=== PATIENT | male | born 1945 | race Caucasian/White ===

== ENCOUNTER → 2018-06-11 | Outpatient (CLI) | payer MEDICARE ==
[~2018-06-11] MED LIST: ASPI-515 PO; BACL-19 PO; CLOP75TA PO; TRAM50TA2 PO; TRIA1CAP3 PO; VANC1VIA3 PO
== END | disposition home or self-care (01) ==
LOC: RAD 07:35
PROVIDERS: ATTEND Surgery
DX: K57.30 Diverticulosis of large intestine without perforation or abscess without bleeding (principal); Z93.3 Colostomy status
CPT/HCPCS: 74270

== ENCOUNTER → 2018-07-05 | Outpatient (CLI) | payer MEDICARE | END | disposition home or self-care (01) | LOC: CARD 08:24 | PROVIDERS: ATTEND Internal Medicine | DX: R55 Syncope and collapse (principal) | CPT/HCPCS: 95819 ==

== ENCOUNTER → 2018-07-14 | Outpatient (CLI) | payer MEDICARE ==
[~2018-07-14] MED LIST changes: +CINN500C2 PO; +CYAN1TAB29 PO; +MULT-707 PO; +OMEG1CAP23 PO; +UBID100C24 PO; +VITAMIN B6 PO; +[UNRECOGNIZED DRUG - OTHER] PO
[2018-07-14 13:32] LABS: BASOPHILS # (AUTO) 0.03 x10^3/uL (0-0.1); BASOPHILS % (AUTO) 0 % (0-1); EOSINOPHILS # (AUTO) 0.25 x10^3/uL (0-0.4); EOSINOPHILS % (AUTO) 2 % (1-7); LYMPHOCYTES # (AUTO) 2.28 x10^3/uL (1-3.4); LYMPHOCYTES % (AUTO) 21 % (22-44); MD NO; MEAN CORPUSCULAR HEMOGLOBIN 32.3 pg (27.5-34.5); MEAN CORPUSCULAR HGB CONC 33.6 g/dL (33.2-36.2); MEAN CORPUSCULAR VOLUME 96.3 fL (81-97); MEAN PLATELET VOLUME 7.8 fL (7.4-10.4); MONOCYTES # (AUTO) 1.02 x10^3/uL (0.2-0.8); MONOCYTES % (AUTO) 9 % (2-9); NEUTROPHILS # (AUTO) 7.22 x10^3/uL (1.8-6.8); NEUTROPHILS % (AUTO) 67 % (42-75); PLATELET COUNT 296 x10^3/uL (130-400); RED BLOOD COUNT 5.23 x10^6/uL (4.38-5.82); RED CELL DISTRIBUTION WIDTH 13.7 % (9.4-14.8)
[2018-07-14 13:44] LABS: ALBUMIN 3.9 g/dL (3.4-5.0); ANION GAP 7 mmol/L (5-15); CALCIUM 9.5 mg/dL (8.5-10.1); CHLORIDE 109 mmol/L (98-107)
[2018-07-14 13:49] LABS: ALANINE AMINOTRANSFERASE 36 U/L (12-78); ALKALINE PHOSPHATASE 82 U/L (45-117); BILIRUBIN,TOTAL 0.6 mg/dL (0.2-1.0); CREATININE 1.07 mg/dL (0.7-1.3); TOTAL PROTEIN 7.3 g/dL (6.4-8.2)
== END | disposition home or self-care (01) ==
LOC: STAR 12:32
PROVIDERS: ATTEND Surgery
DX: Z01.818 Encounter for other preprocedural examination (principal)
CPT/HCPCS: 36415; 80053; 85025; 93005

== ENCOUNTER 2018-07-21 07:48 | Inpatient (IN) | payer MEDICARE ==
[~2018-07-21] VITALS: Ht 167.6 cm; Wt 76.1 kg
[2018-07-21 08:29] VITALS: BP 128/83
[2018-07-21] MEDS ORDERED: LACTATED RINGERS 1,000 ML IV SCH (08:34)
[2018-07-21] MEDS ORDERED: FENTANYL PF 250 MCG/5ML ONE (10:01)
[2018-07-21] MEDS ORDERED: MIDAZOLAM 1 MG/ML, 2ML ONE (10:01)
[2018-07-21] MEDS ORDERED: CEFOTETAN 2 GM ONE (10:30)
[2018-07-21] MEDS ORDERED: PROPOFOL 10 MG/ML, 20ML ONE (10:30)
[2018-07-21] MEDS ORDERED: EPHEDRINE 50 MG/ML, 1ML ONE (10:30)
[2018-07-21] MEDS ORDERED: ONDANSETRON 2MG/ML, 2ML ONE (10:30)
[2018-07-21] MEDS ORDERED: LABETALOL 5MG/ML, 20ML ONE (10:30)
[2018-07-21] MEDS ORDERED: ROCURONIUM 10 MG/ML,10ML ONE (10:30)
[2018-07-21] MEDS ORDERED: DEXAMETHASONE 4 MG/ML, 1ML ONE (10:30)
[2018-07-21] MEDS ORDERED: GLYCOPYRROLATE 0.2MG/1ML, 5ML ONE (10:30)
[2018-07-21] MEDS ORDERED: NEOSTIGMINE 1 MG/ML, 10ML ONE (10:30)
[2018-07-21] MEDS ORDERED: INDOCYANINE GREEN 25 MG VIAL ONE (11:42)
[2018-07-21] MEDS ORDERED: OXYcodone 5 MG/5 ML ORAL.SOL UDC ONE (12:49)
[2018-07-21] MEDS ORDERED: FENTANYL PF 100 MCG/2ML ONE (12:49)
[2018-07-21] MEDS: FENTANYL PF 100 MCG/2ML IV PRN ×3 (12:53→13:30)
[2018-07-21] MEDS ORDERED: hydrALAzine 20 MG/ML, 1ML IV PRN (13:00)
[2018-07-21] MEDS ORDERED: DIAZEPAM 5 MG/ML, 2ML IVPush PRN (13:00)
[2018-07-21] MEDS ORDERED: ALBUTEROL SULFATE 2.5 MG/3 ML NPPB PRN (13:00)
[2018-07-21] MEDS ORDERED: LABETALOL 5MG/ML, 20ML IV PRN (13:00)
[2018-07-21] MEDS ORDERED: MEPERIDINE/PF 25MG/0.5ML IVPush PRN (13:00)
[2018-07-21] MEDS ORDERED: OXYcodone 5 MG/5 ML ORAL.SOL UDC PO PRN (13:00)
[2018-07-21] MEDS ORDERED: ACETAMINOPHEN 325 MG TABLET PO PRN (13:00)
[2018-07-21] MEDS ORDERED: KETOROLAC 30 MG/1 ML IV PRN (13:00)
[2018-07-21] MEDS ORDERED: HYDROmorphone 2 MG/ML, 1ML IVPush PRN (13:00)
[2018-07-21] MEDS ORDERED: PROMETHAZINE 25 MG/ML, 1ML IV PRN (13:00)
[2018-07-21] MEDS ORDERED: ACETAMINOPHEN 650 MG/20.3 ML UDC ONE (13:00)
[2018-07-21] MEDS ORDERED: LORazepam 2 MG/ML, 1ML IVPush PRN (15:00)
[2018-07-21] MEDS ORDERED: LORazepam 1MG TABLET PO PRN (15:00)
[2018-07-21] MEDS ORDERED: DEXAMETHASONE 4 MG/ML, 1ML IVPush PRN (15:00)
[2018-07-21] MEDS ORDERED: SCOPOLAMINE PATCH, 1.5MG PATCH.TD72 TD PRN (15:00)
[2018-07-21] MEDS ORDERED: DIPHENHYDRAMINE 50 MG/ML, 1ML IVPush PRN (15:00)
[2018-07-21] MEDS ORDERED: ACETAMINOPHEN 100 ML IV PRN (15:00)
[2018-07-21] MEDS ORDERED: HALOPERIDOL 5 MG/ML IVPush PRN (15:00)
[2018-07-21] MEDS ORDERED: ACETAMINOPHEN 100 ML IV SCH (15:00)
[2018-07-21] MEDS: D5%-0.45NACL+KCL 20MEQ 1,000 ML IV SCH (16:16)
[2018-07-21] MEDS: ACETAMINOPHEN 500 MG TABLET PO SCH ×2 (16:17→20:39)
[2018-07-21] MEDS: IBUPROFEN 800 MG TABLET PO SCH ×2 (17:01→20:39)
[2018-07-21] MEDS: INSULIN REGULAR, HUMAN 100 UNITS/ML, 3ML MEDIUM DOSE SS SQ-INSULIN SCH ×2 (17:49→20:41)
[2018-07-21 20:13] VITALS: BP 122/74
[2018-07-21] MEDS ORDERED: HYDROmorphone 2 MG/ML, 1ML ONE (20:29)
[2018-07-21] MEDS: HYDROmorphone 1 MG/ML, 1ML IVPush PRN (20:41)
[2018-07-21] MEDS: HEPARIN 5,000 UNITS/ML, 1ML SQ SCH (21:23)
[2018-07-21] MEDS: ONDANSETRON 2MG/ML, 2ML IV PRN (21:23)
[2018-07-22] VITALS: BP 138/73
[2018-07-22] MEDS: ACETAMINOPHEN 500 MG TABLET PO SCH ×4 (03:16→22:30)
[2018-07-22 04:30] VITALS: BP 101/67
[2018-07-22] MEDS: D5%-0.45NACL+KCL 20MEQ 1,000 ML IV SCH ×2 (04:41→15:59)
[2018-07-22] MEDS: HEPARIN 5,000 UNITS/ML, 1ML SQ SCH ×3 (05:15→22:31)
[2018-07-22 05:30] VITALS: BP 117/69
[2018-07-22 05:33] LABS: BASOPHILS % (AUTO) 0 % (0-1); EOSINOPHILS # (AUTO) 0.03 x10^3/uL (0-0.4); EOSINOPHILS % (AUTO) 0 % (1-7); LYMPHOCYTES # (AUTO) 0.82 x10^3/uL (1-3.4); LYMPHOCYTES % (AUTO) 5 % (22-44); MD NO; MEAN CORPUSCULAR HEMOGLOBIN 33.1 pg (27.5-34.5); MEAN CORPUSCULAR HGB CONC 34.3 g/dL (33.2-36.2); MEAN CORPUSCULAR VOLUME 96.3 fL (81-97); MEAN PLATELET VOLUME 8.6 fL (7.4-10.4); MONOCYTES # (AUTO) 1.34 x10^3/uL (0.2-0.8); MONOCYTES % (AUTO) 8 % (2-9); NEUTROPHILS # (AUTO) 15.17 x10^3/uL (1.8-6.8); NEUTROPHILS % (AUTO) 87 % (42-75); PLATELET COUNT 273 x10^3/uL (130-400); RED BLOOD COUNT 4.73 x10^6/uL (4.38-5.82); RED CELL DISTRIBUTION WIDTH 13.8 % (9.4-14.8)
[2018-07-22] MEDS ORDERED: MORPHINE SULFATE 4 MG/ML, 1ML ONE (05:42)
[2018-07-22] MEDS ORDERED: MORPHINE SULFATE 4 MG/ML, 1ML IVPush ONE (06:00)
[2018-07-22] MEDS ORDERED: ASPIRIN 325 MG TABLET PO ONE (06:00)
[2018-07-22 06:14] LABS: ANION GAP 6 mmol/L (5-15); CALCIUM 9.4 mg/dL (8.5-10.1); CHLORIDE 102 mmol/L (98-107)
[2018-07-22 06:18] LABS: CREATININE 1.21 mg/dL (0.7-1.3); TROPONIN I < 0.015 ng/mL (0.000-0.045)
[2018-07-22 08:00] VITALS: BP 124/71
[2018-07-22] MEDS: INSULIN REGULAR, HUMAN 100 UNITS/ML, 3ML MEDIUM DOSE SS SQ-INSULIN SCH ×4 (08:09→22:35)
[2018-07-22] MEDS: IBUPROFEN 800 MG TABLET PO SCH ×3 (08:09→22:30)
[2018-07-22] MEDS: METOCLOPRAMIDE 5 MG/ML, 2ML IVPush SCH ×3 (08:10→20:17)
[2018-07-22 12:16] LABS: TROPONIN I < 0.015 ng/mL (0.000-0.045)
[2018-07-22 14:21] VITALS: BP 114/68
[2018-07-22 19:34] VITALS: BP 119/71
[2018-07-22] MEDS: CALCIUM CARBONATE 500 MG TAB.CHEW PO PRN (22:39)
[2018-07-23 00:58] VITALS: BP 125/78
[2018-07-23] MEDS: METOCLOPRAMIDE 5 MG/ML, 2ML IVPush SCH (02:12)
[2018-07-23] MEDS: ACETAMINOPHEN 500 MG TABLET PO SCH ×4 (03:00→22:26)
[2018-07-23 05:29] LABS: ANION GAP 8 mmol/L (5-15); CALCIUM 8.9 mg/dL (8.5-10.1); CHLORIDE 106 mmol/L (98-107); CREATININE 1.09 mg/dL (0.7-1.3)
[2018-07-23 05:33] LABS: MEAN CORPUSCULAR HEMOGLOBIN 32.7 pg (27.5-34.5); MEAN CORPUSCULAR HGB CONC 34.1 g/dL (33.2-36.2); MEAN CORPUSCULAR VOLUME 95.9 fL (81-97); MEAN PLATELET VOLUME 8.4 fL (7.4-10.4); PLATELET COUNT 264 x10^3/uL (130-400); RED BLOOD COUNT 4.77 x10^6/uL (4.38-5.82); RED CELL DISTRIBUTION WIDTH 13.7 % (9.4-14.8)
[2018-07-23 06:42] LABS: BASOPHILS # (AUTO) 0.01 x10^3/uL (0-0.1); BASOPHILS % (AUTO) 0 % (0-1); EOSINOPHILS # (AUTO) 0.05 x10^3/uL (0-0.4); EOSINOPHILS % (AUTO) 0 % (1-7); LYMPHOCYTES # (AUTO) 0.89 x10^3/uL (1-3.4); LYMPHOCYTES % (AUTO) 5 % (22-44); MD SCAN; MONOCYTES # (AUTO) 0.99 x10^3/uL (0.2-0.8); MONOCYTES % (AUTO) 6 % (2-9); NEUTROPHILS # (AUTO) 15.46 x10^3/uL (1.8-6.8); NEUTROPHILS % (AUTO) 89 % (42-75)
[2018-07-23] MEDS ORDERED: SODIUM CHLORIDE 0.9% 1,000ML IVBOLUS ONE (07:00)
[2018-07-23 07:09] VITALS: BP 161/82
[2018-07-23] MEDS: INSULIN REGULAR, HUMAN 100 UNITS/ML, 3ML MEDIUM DOSE SS SQ-INSULIN SCH ×4 (08:04→21:00)
[2018-07-23] MEDS: IBUPROFEN 800 MG TABLET PO SCH ×3 (08:55→22:26)
[2018-07-23] MEDS: D5%-0.45NACL+KCL 20MEQ 1,000 ML IV SCH ×2 (09:54→13:30)
[2018-07-23] MEDS: D5%-0.45% NACL 1,000 ML IV SCH ×2 (13:27→22:26)
[2018-07-23 14:04] VITALS: BP 153/87
[2018-07-23 21:59] VITALS: BP 178/78
[2018-07-23] MEDS: TRIAMTERENE-HCTZ 37.5/25 MG TABLET PO SCH (22:26)
[2018-07-23] MEDS: SERTRALINE 50MG TABLET PO SCH (22:27)
[2018-07-24 02:00] VITALS: BP 178/95
[2018-07-24] MEDS: ACETAMINOPHEN 500 MG TABLET PO SCH ×4 (03:00→20:31)
[2018-07-24 05:47] LABS: ANION GAP 6 mmol/L (5-15); CALCIUM 8.3 mg/dL (8.5-10.1); CHLORIDE 109 mmol/L (98-107); CREATININE 0.78 mg/dL (0.7-1.3)
[2018-07-24 06:00] LABS: BASOPHILS # (AUTO) 0.03 x10^3/uL (0-0.1); BASOPHILS % (AUTO) 0 % (0-1); EOSINOPHILS % (AUTO) 2 % (1-7); LYMPHOCYTES # (AUTO) 1.36 x10^3/uL (1-3.4); LYMPHOCYTES % (AUTO) 11 % (22-44); MD NO; MEAN CORPUSCULAR HEMOGLOBIN 33.1 pg (27.5-34.5); MEAN CORPUSCULAR HGB CONC 34.7 g/dL (33.2-36.2); MEAN CORPUSCULAR VOLUME 95.5 fL (81-97); MEAN PLATELET VOLUME 7.9 fL (7.4-10.4); MONOCYTES # (AUTO) 1.08 x10^3/uL (0.2-0.8); MONOCYTES % (AUTO) 9 % (2-9); NEUTROPHILS # (AUTO) 9.85 x10^3/uL (1.8-6.8); NEUTROPHILS % (AUTO) 78 % (42-75); PLATELET COUNT 247 x10^3/uL (130-400); RED BLOOD COUNT 4.21 x10^6/uL (4.38-5.82); RED CELL DISTRIBUTION WIDTH 14.3 % (9.4-14.8)
[2018-07-24] MEDS ORDERED: hydrALAzine 20 MG/ML, 1ML IV PRN (07:30)
[2018-07-24] MEDS: INSULIN REGULAR, HUMAN 100 UNITS/ML, 3ML MEDIUM DOSE SS SQ-INSULIN SCH ×4 (07:50→20:43)
[2018-07-24 09:07] VITALS: BP 179/92
[2018-07-24] MEDS: IBUPROFEN 800 MG TABLET PO SCH ×3 (09:14→20:32)
[2018-07-24] MEDS ORDERED: NITROGLYCERIN 0.4 MG BOTTLE (25 TABS) SL ONE (09:31)
[2018-07-24 10:00] LABS: TROPONIN I < 0.015 ng/mL (0.000-0.045)
[2018-07-24 10:14] VITALS: BP 159/88
[2018-07-24] MEDS ORDERED: ENALAPRILAT 1.25 MG/ML, 2ML IV PRN (11:00)
[2018-07-24 14:43] VITALS: BP 156/80
[2018-07-24 15:31] LABS: TROPONIN I < 0.015 ng/mL (0.000-0.045)
[2018-07-24 19:56] VITALS: BP 134/80
[2018-07-24] MEDS ORDERED: IBUPROFEN 200 MG TABLET ONE (20:08)
[2018-07-24] MEDS: TRIAMTERENE-HCTZ 37.5/25 MG TABLET PO SCH (20:31)
[2018-07-24] MEDS: SERTRALINE 50MG TABLET PO SCH (20:38)
[2018-07-24 21:17] LABS: TROPONIN I < 0.015 ng/mL (0.000-0.045)
[2018-07-25] VITALS (14 sets, daily range): BP systolic 104–208; BP diastolic 67–105
[2018-07-25 03:19] LABS: BASOPHILS # (AUTO) 0.06 x10^3/uL (0-0.1); BASOPHILS % (AUTO) 1 % (0-1); EOSINOPHILS # (AUTO) 0.53 x10^3/uL (0-0.4); EOSINOPHILS % (AUTO) 4 % (1-7); LYMPHOCYTES # (AUTO) 1.77 x10^3/uL (1-3.4); LYMPHOCYTES % (AUTO) 14 % (22-44); MD NO; MEAN CORPUSCULAR HEMOGLOBIN 32.8 pg (27.5-34.5); MEAN CORPUSCULAR HGB CONC 33.8 g/dL (33.2-36.2); MEAN CORPUSCULAR VOLUME 96.9 fL (81-97); MEAN PLATELET VOLUME 7.6 fL (7.4-10.4); MONOCYTES # (AUTO) 1.03 x10^3/uL (0.2-0.8); MONOCYTES % (AUTO) 8 % (2-9); NEUTROPHILS # (AUTO) 9.09 x10^3/uL (1.8-6.8); NEUTROPHILS % (AUTO) 73 % (42-75); PLATELET COUNT 291 x10^3/uL (130-400); RED BLOOD COUNT 4.37 x10^6/uL (4.38-5.82); RED CELL DISTRIBUTION WIDTH 14.2 % (9.4-14.8)
[2018-07-25 03:31] LABS: ANION GAP 6 mmol/L (5-15); CALCIUM 8.8 mg/dL (8.5-10.1); CHLORIDE 109 mmol/L (98-107); CREATININE 0.82 mg/dL (0.7-1.3)
[2018-07-25 03:35] LABS: TROPONIN I < 0.015 ng/mL (0.000-0.045)
[2018-07-25] MEDS: ACETAMINOPHEN 500 MG TABLET PO SCH ×4 (03:35→21:21)
[2018-07-25] MEDS: INSULIN REGULAR, HUMAN 100 UNITS/ML, 3ML MEDIUM DOSE SS SQ-INSULIN SCH ×4 (07:45→20:00)
[2018-07-25] MEDS: IBUPROFEN 800 MG TABLET PO SCH ×3 (10:45→21:21)
[2018-07-25] MEDS ORDERED: POTASSIUM CHLORIDE 20 MEQ TAB.ER.PRT PO ONE (11:00)
[2018-07-25] MEDS ORDERED: POTASSIUM CHLORIDE 20 MEQ TAB.ER.PRT ONE (15:12)
[2018-07-25] MEDS: SERTRALINE 50MG TABLET PO SCH (21:00)
[2018-07-25] MEDS: TRIAMTERENE-HCTZ 37.5/25 MG TABLET PO SCH (21:21)
[2018-07-25] MEDS: NITROGLYCERIN 0.4 MG BOTTLE (25 TABS) SL PRN ×4 (21:26→23:54)
[2018-07-26] VITALS (11 sets, daily range): BP systolic 115–186; BP diastolic 74–93
[2018-07-26] MEDS ORDERED: HYDROmorphone 2 MG/ML, 1ML ONE (00:04)
[2018-07-26] MEDS: HYDROmorphone 1 MG/ML, 1ML IVPush PRN (00:07)
[2018-07-26] MEDS ORDERED: NITROGLYCERIN 0.4 MG BOTTLE (25 TABS) SL PRN (00:30)
[2018-07-26] MEDS ORDERED: NITROGLYCERIN 0.4 MG/SPRAY SL PRN (00:30)
[2018-07-26] MEDS ORDERED: MAALOX/HYOSCYAMINE/LIDOCAINE 45 ML BTL PO ONE (01:00)
[2018-07-26] MEDS: ACETAMINOPHEN 500 MG TABLET PO SCH ×2 (03:48→09:00)
[2018-07-26] MEDS: INSULIN REGULAR, HUMAN 100 UNITS/ML, 3ML MEDIUM DOSE SS SQ-INSULIN SCH ×4 (07:00→20:38)
[2018-07-26 07:38] LABS: BASOPHILS # (AUTO) 0.03 x10^3/uL (0-0.1); BASOPHILS % (AUTO) 0 % (0-1); EOSINOPHILS # (AUTO) 0.48 x10^3/uL (0-0.4); EOSINOPHILS % (AUTO) 4 % (1-7); LYMPHOCYTES # (AUTO) 1.87 x10^3/uL (1-3.4); LYMPHOCYTES % (AUTO) 16 % (22-44); MD NO; MEAN CORPUSCULAR HEMOGLOBIN 32.3 pg (27.5-34.5); MEAN CORPUSCULAR HGB CONC 33.4 g/dL (33.2-36.2); MEAN CORPUSCULAR VOLUME 96.6 fL (81-97); MEAN PLATELET VOLUME 7.5 fL (7.4-10.4); MONOCYTES # (AUTO) 1.17 x10^3/uL (0.2-0.8); MONOCYTES % (AUTO) 10 % (2-9); NEUTROPHILS # (AUTO) 7.97 x10^3/uL (1.8-6.8); NEUTROPHILS % (AUTO) 69 % (42-75); PLATELET COUNT 315 x10^3/uL (130-400); RED CELL DISTRIBUTION WIDTH 13.9 % (9.4-14.8)
[2018-07-26 07:47] LABS: ANION GAP 4 mmol/L (5-15); CALCIUM 9.3 mg/dL (8.5-10.1); CHLORIDE 106 mmol/L (98-107); CREATININE 0.96 mg/dL (0.7-1.3)
[2018-07-26] MEDS ORDERED: MORPHINE SULFATE 4 MG/ML, 1ML ONE (08:08)
[2018-07-26] MEDS: ONDANSETRON 2MG/ML, 2ML IV PRN (08:12)
[2018-07-26] MEDS ORDERED: MORPHINE SULFATE 4 MG/ML, 1ML IVPush ONE ×2 (08:30→12:30)
[2018-07-26] MEDS: IBUPROFEN 800 MG TABLET PO SCH (09:00)
[2018-07-26] MEDS ORDERED: REGADENOSON 0.4 MG/5 ML SYRINGE ONE (09:25)
[2018-07-26] MEDS ORDERED: IBUPROFEN 200 MG TABLET ONE (12:07)
[2018-07-26] MEDS: CALCIUM CARBONATE 500 MG TAB.CHEW PO PRN ×2 (12:13→14:29)
[2018-07-26 12:51] LABS: TROPONIN I < 0.015 ng/mL (0.000-0.045)
[2018-07-26] MEDS ORDERED: AMLODIPINE 2.5 MG TABLET PO ONE (14:30)
[2018-07-26] MEDS ORDERED: MAALOX/HYOSCYAMINE/LIDOCAINE 45 ML BTL PO PRN ×2 (15:30→18:30)
[2018-07-26] MEDS: TRIAMTERENE-HCTZ 37.5/25 MG TABLET PO SCH (20:33)
[2018-07-26] MEDS: FAMOTIDINE 20 MG TABLET PO SCH (20:33)
[2018-07-27 02:31] VITALS: BP 134/81
[2018-07-27 07:41] VITALS: BP 120/74
[2018-07-27] MEDS: FAMOTIDINE 20 MG TABLET PO SCH (07:59)
[2018-07-27] MEDS: INSULIN REGULAR, HUMAN 100 UNITS/ML, 3ML MEDIUM DOSE SS SQ-INSULIN SCH (07:59)
[2018-07-27] MEDS ORDERED: AMLODIPINE 2.5 MG TABLET PO SCH (09:00)
[2018-07-27] MEDS ORDERED: AMLO2.5T2 PO (09:48)
== END 2018-07-27 11:00 | disposition home health service (06) | DRG 332 ==
LOC: ORIP 07:48 → 4NOR 14:19 → 5SO 07-24 10:11 → DCLOUNGE 07-27 10:30
PROVIDERS: ADMIT Surgery; ATTEND Surgery
PROC: 0DSN4ZZ Reposition Sigmoid Colon, Percutaneous Endoscopic Approach (ICD-10-PCS; 2018-07-21)
PROC: 8E0W4CZ Robotic Assisted Procedure of Trunk Region, Percutaneous Endoscopic Approach (ICD-10-PCS; 2018-07-21)
PROC: 3E0T3BZ Introduction of Anesthetic Agent into Peripheral Nerves and Plexi, Percutaneous Approach (ICD-10-PCS; 2018-07-21)
PROC: 0DBP4ZZ Excision of Rectum, Percutaneous Endoscopic Approach (ICD-10-PCS; principal; 2018-07-21 10:00)
DX: Z43.3 Encounter for attention to colostomy (principal); R65.11 Systemic inflammatory response syndrome (SIRS) of non-infectious origin with acute organ dysfunction; E88.41 MELAS syndrome; E78.5 Hyperlipidemia, unspecified; E87.6 Hypokalemia; F32.9 Major depressive disorder, single episode, unspecified; I11.9 Hypertensive heart disease without heart failure; R07.9 Chest pain, unspecified; M19.90 Unspecified osteoarthritis, unspecified site; R73.9 Hyperglycemia, unspecified; D72.829 Elevated white blood cell count, unspecified; I25.10 Atherosclerotic heart disease of native coronary artery without angina pectoris; K11.7 Disturbances of salivary secretion; Z82.49 Family history of ischemic heart disease and other diseases of the circulatory system; Z85.828 Personal history of other malignant neoplasm of skin; Z87.442 Personal history of urinary calculi; Z87.891 Personal history of nicotine dependence; Z95.1 Presence of aortocoronary bypass graft; Z95.5 Presence of coronary angioplasty implant and graft; Z90.49 Acquired absence of other specified parts of digestive tract; Z79.82 Long term (current) use of aspirin; Z79.899 Other long term (current) drug therapy; Z83.3 Family history of diabetes mellitus
CPT/HCPCS: 36415; 78452; 78582; 80048; 82962; 84484; 85025; 86140; 88304; 88307; 93005; 93017; G0378; J1100; J1170; J1644; J1815; J2250; J2405; J2704; J2710; J2785; J3010; J3490; A9502; A9540; A9558; C9898; J0360; J2765; J3480; J7030; J7120

== ENCOUNTER 2019-03-14 10:48 | Outpatient (CLI) | payer MEDICARE ==
[~2019-03-14 10:48] MED LIST changes: +AMLO2.5T2 PO
[2019-03-14] MEDS ORDERED: B12 PO (11:29)
[2019-03-14] MEDS ORDERED: MULT-758 PO (11:29)
[2019-03-14 12:30] LABS: BASOPHILS # (AUTO) 0.02 x10^3/uL (0-0.1); BASOPHILS % (AUTO) 0 % (0-1); EOSINOPHILS # (AUTO) 0.17 x10^3/uL (0-0.4); EOSINOPHILS % (AUTO) 2 % (1-7); LYMPHOCYTES % (AUTO) 18 % (22-44); MD NO; MEAN CORPUSCULAR HEMOGLOBIN 32.9 pg (27.5-34.5); MEAN CORPUSCULAR HGB CONC 33.7 g/dL (33.2-36.2); MEAN CORPUSCULAR VOLUME 97.5 fL (81-97); MEAN PLATELET VOLUME 8.1 fL (7.4-10.4); MONOCYTES # (AUTO) 0.78 x10^3/uL (0.2-0.8); MONOCYTES % (AUTO) 9 % (2-9); NEUTROPHILS # (AUTO) 6.11 x10^3/uL (1.8-6.8); NEUTROPHILS % (AUTO) 71 % (42-75); PLATELET COUNT 260 x10^3/uL (130-400); RED BLOOD COUNT 5.28 x10^6/uL (4.38-5.82); RED CELL DISTRIBUTION WIDTH 13.8 % (9.4-14.8)
[2019-03-14 12:32] LABS: INTERNATIONAL NORMALIZED RATIO 0.95 (0.93-1.1)
[2019-03-14 12:34] LABS: ANION GAP 7 mmol/L (5-15); CALCIUM 9.9 mg/dL (8.5-10.1); CHLORIDE 105 mmol/L (98-107); CREATININE 1.03 mg/dL (0.7-1.3)
[2019-03-15 08:52] LABS: ALANINE AMINOTRANSFERASE 41 U/L (12-78)
[2019-03-15 08:54] LABS: ALKALINE PHOSPHATASE 109 U/L (45-117); BILIRUBIN,TOTAL 0.5 mg/dL (0.2-1.0); TOTAL PROTEIN 7.3 g/dL (6.4-8.2)
== END 2019-03-14 23:59 | disposition home or self-care (01) ==
LOC: STAR 10:48
PROVIDERS: ATTEND Neurological Surgery
DX: Z01.818 Encounter for other preprocedural examination (principal); M48.062 Spinal stenosis, lumbar region with neurogenic claudication
CPT/HCPCS: 36415; 80048; 80053; 85025; 85610; 85730; 93005

== ENCOUNTER 2019-03-22 05:43 | Inpatient (IN) | payer MEDICARE ==
[~2019-03-22] VITALS: Ht 167.6 cm; Wt 78.8 kg
[~2019-03-22 05:43] MED LIST changes: +B12 PO; +MULT-758 PO
[2019-03-22] MEDS ORDERED: LACTATED RINGERS 1,000 ML IV SCH (06:12)
[2019-03-22] MEDS ORDERED: BACITRACIN OINT 500U/GM, 15 GM ONE (07:03)
[2019-03-22] MEDS ORDERED: BUPIVACAINE/PF 0.5% ONE (07:03)
[2019-03-22] MEDS ORDERED: VANCOMYCIN 1,000 MG ONE (07:03)
[2019-03-22] MEDS ORDERED: methylPREDNISolone *ACETATE* 40 MG/ML ONE (07:03)
[2019-03-22] MEDS ORDERED: THROMBIN 5,000 UNIT VIAL TP ONE ×2 (07:03→08:31)
[2019-03-22] MEDS ORDERED: EPINEPHRINE 1 MG/ML, 1ML ONE (07:03)
[2019-03-22] MEDS ORDERED: BACITRACIN 50,000 UNIT ONE (07:03)
[2019-03-22] MEDS ORDERED: MIDAZOLAM 1 MG/ML, 2ML ONE (07:23)
[2019-03-22] MEDS ORDERED: FENTANYL PF 250 MCG/5ML ONE (07:23)
[2019-03-22] MEDS ORDERED: PROMETHAZINE 25 MG/ML, 1ML IV PRN (07:30)
[2019-03-22] MEDS ORDERED: MEPERIDINE/PF 25MG/ML,1ML IVPush PRN (07:30)
[2019-03-22] MEDS ORDERED: ACETAMINOPHEN 500 MG TABLET PO ONE (07:30)
[2019-03-22] MEDS ORDERED: hydrALAzine 20 MG/ML, 1ML IV PRN (07:30)
[2019-03-22] MEDS ORDERED: LABETALOL 5MG/ML, 20ML IV PRN (07:30)
[2019-03-22] MEDS ORDERED: HYDROmorphone 2 MG/ML, 1ML IVPush PRN ×2 (07:30→10:00)
[2019-03-22] MEDS ORDERED: OXYcodone 5 MG/5 ML ORAL.SOL UDC PO PRN (07:30)
[2019-03-22] MEDS ORDERED: HALOPERIDOL 5 MG/ML IV PRN (07:30)
[2019-03-22] MEDS ORDERED: EPHEDRINE 50 MG/ML, 1ML ONE (07:36)
[2019-03-22] MEDS ORDERED: SUCCINYLCHOLINE 20 MG/ML, 10ML ONE (09:26)
[2019-03-22] MEDS ORDERED: DEXAMETHASONE 4 MG/ML, 1ML ONE (09:26)
[2019-03-22] MEDS ORDERED: ONDANSETRON 2MG/ML, 2ML ONE (09:26)
[2019-03-22] MEDS ORDERED: NEOSTIGMINE 1 MG/ML, 10ML ONE (09:26)
[2019-03-22] MEDS ORDERED: PROPOFOL 10 MG/ML, 20ML ONE (09:26)
[2019-03-22] MEDS ORDERED: CEFAZOLIN 1,000 MG ONE (09:26)
[2019-03-22] MEDS ORDERED: ROCURONIUM 10MG/ML,5ML ONE (09:26)
[2019-03-22] MEDS ORDERED: GLYCOPYRROLATE 0.2MG/1ML, 5ML ONE (09:26)
[2019-03-22] MEDS ORDERED: DIPHENHYDRAMINE 50 MG/ML, 1ML IM PRN (10:00)
[2019-03-22] MEDS ORDERED: BISACODYL 10 MG SUPP PR PRN (10:00)
[2019-03-22] MEDS ORDERED: PROMETHAZINE 25 MG/ML, 1ML IM PRN (10:00)
[2019-03-22] MEDS ORDERED: ONDANSETRON 2MG/ML, 2ML IVPush PRN (10:00)
[2019-03-22] MEDS ORDERED: DIPHENHYDRAMINE 50 MG CAPSULE PO PRN (10:00)
[2019-03-22] MEDS ORDERED: PHARMACY MAY ADJ FOR RENAL FX MC PRN (10:00)
[2019-03-22] MEDS: OXYcodone 5 MG/5 ML ORAL.SOL UDC PO PRN ×2 (10:11→10:17)
[2019-03-22] MEDS ORDERED: OXYcodone 5 MG/5 ML ORAL.SOL UDC ONE (10:16)
[2019-03-22] MEDS ORDERED: HYDROmorphone 1 MG/ML, 1ML VIAL ONE (10:24)
[2019-03-22] MEDS: FENTANYL PF 100 MCG/2ML IV PRN ×2 (10:31→10:40)
[2019-03-22] MEDS ORDERED: FENTANYL PF 100 MCG/2ML ONE (10:36)
[2019-03-22] MEDS ORDERED: CYCLOBENZAPRINE 10 MG TABLET ONE (10:42)
[2019-03-22] MEDS: CYCLOBENZAPRINE 10 MG TABLET PO SCH ×2 (10:43→16:44)
[2019-03-22 14:00] VITALS: BP_SYST 100; BP_SYST 140; BP_DIAS 52; BP_DIAS 85
[2019-03-22] MEDS: OXYcodone/APAP 5/325MG TABLET PO PRN ×2 (16:44→20:43)
[2019-03-22] MEDS: NS + 20MEQ KCL 1,000 ML IV SCH (16:46)
[2019-03-22] MEDS: CEFAZOLIN PMX 1GM/50ML 50 ML IVPB SCH (16:46)
[2019-03-22 19:28] VITALS: BP 98/66
[2019-03-22 23:56] VITALS: BP 113/75
[2019-03-23] MEDS: CEFAZOLIN PMX 1GM/50ML 50 ML IVPB SCH (00:56)
[2019-03-23] MEDS: OXYcodone/APAP 5/325MG TABLET PO PRN ×4 (01:51→20:47)
[2019-03-23 04:23] VITALS: BP 104/68
[2019-03-23 05:45] LABS: ALBUMIN 2.9 g/dL (3.4-5.0); CHLORIDE 108 mmol/L (98-107)
[2019-03-23 05:48] LABS: ANION GAP 5 mmol/L (5-15); CALCIUM 8.4 mg/dL (8.5-10.1); CREATININE 1.04 mg/dL (0.7-1.3)
[2019-03-23 06:57] VITALS: BP 109/69
[2019-03-23 07:10] LABS: MEAN CORPUSCULAR HEMOGLOBIN 32.5 pg (27.5-34.5); MEAN CORPUSCULAR HGB CONC 33.3 g/dL (33.2-36.2); MEAN CORPUSCULAR VOLUME 97.4 fL (81-97); PLATELET COUNT 223 x10^3/uL (130-400); RED BLOOD COUNT 4.45 x10^6/uL (4.38-5.82); RED CELL DISTRIBUTION WIDTH 13.2 % (9.4-14.8)
[2019-03-23 07:21] LABS: BASOPHILS # (AUTO) 0.11 x10^3/uL (0-0.1); BASOPHILS % (AUTO) 1 % (0-1); EOSINOPHILS % (AUTO) 0 % (1-7); LYMPHOCYTES # (AUTO) 1.01 x10^3/uL (1-3.4); LYMPHOCYTES % (AUTO) 5 % (22-44); MD SCAN; MONOCYTES # (AUTO) 1.36 x10^3/uL (0.2-0.8); MONOCYTES % (AUTO) 6 % (2-9); NEUTROPHILS # (AUTO) 19.25 x10^3/uL (1.8-6.8); NEUTROPHILS % (AUTO) 89 % (42-75)
[2019-03-23] MEDS: NS + 20MEQ KCL 1,000 ML IV SCH ×2 (07:58→20:47)
[2019-03-23] MEDS: CYCLOBENZAPRINE 10 MG TABLET PO SCH ×3 (08:10→20:45)
[2019-03-23] MEDS: TRIAMTERENE-HCTZ 37.5/25 MG TABLET PO SCH (08:10)
[2019-03-23] MEDS: MORPHINE SULFATE 4 MG/ML, 1ML IVPush PRN (11:08)
[2019-03-23 13:13] VITALS: BP 131/72
[2019-03-23 19:09] VITALS: BP 129/67
[2019-03-24 02:11] VITALS: BP 131/73
[2019-03-24 04:50] LABS: MEAN CORPUSCULAR HGB CONC 33.6 g/dL (33.2-36.2); MEAN CORPUSCULAR VOLUME 98.2 fL (81-97); MEAN PLATELET VOLUME 8.3 fL (7.4-10.4); PLATELET COUNT 188 x10^3/uL (130-400); RED BLOOD COUNT 4.03 x10^6/uL (4.38-5.82); RED CELL DISTRIBUTION WIDTH 13.4 % (9.4-14.8)
[2019-03-24] MEDS: OXYcodone/APAP 5/325MG TABLET PO PRN ×3 (04:52→17:52)
[2019-03-24 05:29] LABS: MD YES
[2019-03-24 05:37] LABS: LYMPHS% (MANUAL) 15 % (22-44); MONOS#(MANUAL) 0.93 x10^3/uL (0.3-2.7); MONOS% (MANUAL) 7 % (2-9); SEG#(MANUAL) 10.37 x10^3/uL (1.8-6.8); SEGS% (MANUAL) 78 % (42-75)
[2019-03-24 05:38] LABS: <PLATELET ESTIMATE> ADEQUATE; <PLT MORPHOLOGY> NORMAL PLT MORPH
[2019-03-24 05:39] LABS: ANISOCYTOSIS 1+
[2019-03-24 08:36] VITALS: BP 112/71
[2019-03-24] MEDS: TRIAMTERENE-HCTZ 37.5/25 MG TABLET PO SCH (09:00)
[2019-03-24] MEDS: CYCLOBENZAPRINE 10 MG TABLET PO SCH ×3 (09:32→21:07)
[2019-03-24] MEDS: NS + 20MEQ KCL 1,000 ML IV SCH ×2 (09:32→11:34)
[2019-03-24] MEDS: TAMSULOSIN 0.4 MG CAP.ER.24H PO SCH (11:00)
[2019-03-24 13:27] VITALS: BP 134/74
[2019-03-24] MEDS: MAGNESIUM HYDROXIDE 8%, 30ML UDC PO PRN (13:29)
[2019-03-24] MEDS: MORPHINE SULFATE 4 MG/ML, 1ML IVPush PRN (13:50)
[2019-03-24 19:54] VITALS: BP 143/80
[2019-03-25] MEDS: MORPHINE SULFATE 4 MG/ML, 1ML IVPush PRN (01:14)
[2019-03-25] MEDS: OXYcodone/APAP 5/325MG TABLET PO PRN ×4 (01:15→19:21)
[2019-03-25 01:28] VITALS: BP 132/80
[2019-03-25 05:44] LABS: BASOPHILS # (AUTO) 0.05 x10^3/uL (0-0.1); BASOPHILS % (AUTO) 0 % (0-1); EOSINOPHILS # (AUTO) 0.33 x10^3/uL (0-0.4); EOSINOPHILS % (AUTO) 3 % (1-7); LYMPHOCYTES # (AUTO) 2.14 x10^3/uL (1-3.4); LYMPHOCYTES % (AUTO) 18 % (22-44); MD NO; MEAN CORPUSCULAR HEMOGLOBIN 33.1 pg (27.5-34.5); MEAN CORPUSCULAR HGB CONC 33.7 g/dL (33.2-36.2); MEAN CORPUSCULAR VOLUME 98.3 fL (81-97); MEAN PLATELET VOLUME 8.1 fL (7.4-10.4); MONOCYTES # (AUTO) 1.01 x10^3/uL (0.2-0.8); MONOCYTES % (AUTO) 9 % (2-9); NEUTROPHILS # (AUTO) 8.26 x10^3/uL (1.8-6.8); NEUTROPHILS % (AUTO) 70 % (42-75); PLATELET COUNT 197 x10^3/uL (130-400); RED BLOOD COUNT 4.28 x10^6/uL (4.38-5.82); RED CELL DISTRIBUTION WIDTH 13.6 % (9.4-14.8)
[2019-03-25] MEDS: TAMSULOSIN 0.4 MG CAP.ER.24H PO SCH (08:27)
[2019-03-25] MEDS: MAGNESIUM HYDROXIDE 8%, 30ML UDC PO PRN (08:27)
[2019-03-25] MEDS: CYCLOBENZAPRINE 10 MG TABLET PO SCH ×3 (08:27→21:23)
[2019-03-25 08:42] VITALS: BP 121/80
[2019-03-25] MEDS: NS + 20MEQ KCL 1,000 ML IV SCH (08:57)
[2019-03-25] MEDS: TRIAMTERENE-HCTZ 37.5/25 MG TABLET PO SCH (08:57)
[2019-03-25] MEDS ORDERED: MAGNESIUM CITRATE 300ML ORAL SOL PO PRN (09:00)
[2019-03-25 14:27] VITALS: BP 112/76
[2019-03-25 19:15] VITALS: BP 105/72
[2019-03-26] MEDS: NS + 20MEQ KCL 1,000 ML IV SCH ×2 (02:40→16:00)
[2019-03-26 02:50] VITALS: BP 131/73
[2019-03-26] MEDS: OXYcodone/APAP 5/325MG TABLET PO PRN ×5 (04:11→21:26)
[2019-03-26 05:26] LABS: MEAN CORPUSCULAR HEMOGLOBIN 32.5 pg (27.5-34.5); MEAN CORPUSCULAR HGB CONC 33.3 g/dL (33.2-36.2); MEAN CORPUSCULAR VOLUME 97.5 fL (81-97); MEAN PLATELET VOLUME 7.8 fL (7.4-10.4); PLATELET COUNT 208 x10^3/uL (130-400); RED BLOOD COUNT 4.17 x10^6/uL (4.38-5.82); RED CELL DISTRIBUTION WIDTH 13.6 % (9.4-14.8)
[2019-03-26 06:39] LABS: MD YES
[2019-03-26 06:44] LABS: EOS#(MANUAL) 0.11 x10^3/uL (0.0-0.4); EOS% (MANUAL) 1 % (1-7); LYMPHS% (MANUAL) 29 % (22-44); MONOS#(MANUAL) 0.21 x10^3/uL (0.3-2.7); MONOS% (MANUAL) 2 % (2-9); SEG#(MANUAL) 7.28 x10^3/uL (1.8-6.8); SEGS% (MANUAL) 68 % (42-75)
[2019-03-26 06:45] LABS: <PLATELET ESTIMATE> ADEQUATE; <PLT MORPHOLOGY> NORMAL PLT MORPH; ANISOCYTOSIS 1+
[2019-03-26 07:08] VITALS: BP 145/87
[2019-03-26] MEDS: CYCLOBENZAPRINE 10 MG TABLET PO SCH ×3 (08:12→21:27)
[2019-03-26] MEDS: TAMSULOSIN 0.4 MG CAP.ER.24H PO SCH (08:12)
[2019-03-26] MEDS: TRIAMTERENE-HCTZ 37.5/25 MG TABLET PO SCH (08:13)
[2019-03-26] MEDS: SENNA/DOCUSATE TABLET PO PRN (08:18)
[2019-03-26] MEDS: MORPHINE SULFATE 4 MG/ML, 1ML IVPush PRN (09:31)
[2019-03-26 12:25] VITALS: BP 131/85
[2019-03-26] MEDS ORDERED: FLU VACC QS2019-20 36MOS UP/PF 0.5 ML IM-VACC ONE (17:00)
[2019-03-26 19:26] VITALS: BP 142/79
[2019-03-27 00:25] VITALS: BP 120/71
[2019-03-27] MEDS: OXYcodone/APAP 5/325MG TABLET PO PRN ×4 (04:10→23:11)
[2019-03-27] MEDS: NS + 20MEQ KCL 1,000 ML IV SCH ×2 (05:20→17:51)
[2019-03-27 05:35] LABS: BASOPHILS # (AUTO) 0.04 x10^3/uL (0-0.1); BASOPHILS % (AUTO) 1 % (0-1); EOSINOPHILS # (AUTO) 0.29 x10^3/uL (0-0.4); EOSINOPHILS % (AUTO) 3 % (1-7); LYMPHOCYTES % (AUTO) 17 % (22-44); MD NO; MEAN CORPUSCULAR HEMOGLOBIN 32.8 pg (27.5-34.5); MEAN CORPUSCULAR HGB CONC 33.4 g/dL (33.2-36.2); MEAN CORPUSCULAR VOLUME 98.4 fL (81-97); MEAN PLATELET VOLUME 7.5 fL (7.4-10.4); MONOCYTES % (AUTO) 9 % (2-9); NEUTROPHILS # (AUTO) 6.62 x10^3/uL (1.8-6.8); NEUTROPHILS % (AUTO) 71 % (42-75); PLATELET COUNT 231 x10^3/uL (130-400); RED BLOOD COUNT 4.18 x10^6/uL (4.38-5.82); RED CELL DISTRIBUTION WIDTH 14.2 % (9.4-14.8)
[2019-03-27 07:12] VITALS: BP 141/78
[2019-03-27] MEDS: TRIAMTERENE-HCTZ 37.5/25 MG TABLET PO SCH (09:40)
[2019-03-27] MEDS: CYCLOBENZAPRINE 10 MG TABLET PO SCH ×3 (09:41→21:27)
[2019-03-27] MEDS: TAMSULOSIN 0.4 MG CAP.ER.24H PO SCH (09:41)
[2019-03-27] MEDS: SENNA/DOCUSATE TABLET PO PRN (09:44)
[2019-03-27 13:18] VITALS: BP 126/74
[2019-03-27] MEDS: MORPHINE SULFATE 4 MG/ML, 1ML IVPush PRN (19:15)
[2019-03-27 20:20] VITALS: BP 116/69
[2019-03-28 02:03] VITALS: BP 114/76
[2019-03-28 05:30] LABS: BASOPHILS # (AUTO) 0.01 x10^3/uL (0-0.1); BASOPHILS % (AUTO) 0 % (0-1); EOSINOPHILS % (AUTO) 2 % (1-7); LYMPHOCYTES % (AUTO) 12 % (22-44); MD NO; MEAN CORPUSCULAR HEMOGLOBIN 32.9 pg (27.5-34.5); MEAN CORPUSCULAR HGB CONC 33.5 g/dL (33.2-36.2); MEAN CORPUSCULAR VOLUME 98.2 fL (81-97); MEAN PLATELET VOLUME 7.5 fL (7.4-10.4); MONOCYTES # (AUTO) 0.89 x10^3/uL (0.2-0.8); MONOCYTES % (AUTO) 7 % (2-9); NEUTROPHILS # (AUTO) 10.34 x10^3/uL (1.8-6.8); NEUTROPHILS % (AUTO) 79 % (42-75); PLATELET COUNT 241 x10^3/uL (130-400); RED BLOOD COUNT 4.28 x10^6/uL (4.38-5.82); RED CELL DISTRIBUTION WIDTH 13.6 % (9.4-14.8)
[2019-03-28] MEDS: CYCLOBENZAPRINE 10 MG TABLET PO SCH ×2 (06:18→14:26)
[2019-03-28 07:03] VITALS: BP 134/86
[2019-03-28] MEDS: TRIAMTERENE-HCTZ 37.5/25 MG TABLET PO SCH (07:55)
[2019-03-28] MEDS: TAMSULOSIN 0.4 MG CAP.ER.24H PO SCH (07:55)
[2019-03-28] MEDS: NS + 20MEQ KCL 1,000 ML IV SCH (07:55)
[2019-03-28] MEDS: ACETAMINOPHEN 325 MG TABLET PO PRN ×2 (07:55→12:10)
[2019-03-28] MEDS ORDERED: OXYcodone/APAP 5/325MG PO (09:00)
[2019-03-28] MEDS ORDERED: CYCL-259 PO (09:00)
[2019-03-28 12:43] VITALS: BP 133/81
[2019-03-28 14:41] VITALS: BP 124/80
== END 2019-03-28 17:00 | disposition home health service (06) | DRG 516 ==
LOC: OUT 05:43 → OBSVTOIN 09:46 → 4NE 09:46 → DCLOUNGE 03-28 16:36
PROVIDERS: ADMIT Neurological Surgery; ATTEND Neurological Surgery
PROC: 01NR0ZZ Release Sacral Nerve, Open Approach (ICD-10-PCS; 2019-03-22)
PROC: 01NB0ZZ Release Lumbar Nerve, Open Approach (ICD-10-PCS; principal; 2019-03-22 07:30)
DX: M48.07 Spinal stenosis, lumbosacral region (principal); G95.20 Unspecified cord compression; I25.10 Atherosclerotic heart disease of native coronary artery without angina pectoris; I10 Essential (primary) hypertension; E78.00 Pure hypercholesterolemia, unspecified; Z95.1 Presence of aortocoronary bypass graft; G43.909 Migraine, unspecified, not intractable, without status migrainosus; Z90.49 Acquired absence of other specified parts of digestive tract; Z88.8 Allergy status to other drugs, medicaments and biological substances; Z91.041 Radiographic dye allergy status
CPT/HCPCS: 36415; 72100; 80048; 82040; 85025; 86850; 86900; 90686; G0378; J0171; J0690; J1100; J1170; J2250; J2405; J2704; J2710; J3010; J3370; J3480; J0330; J1030; J2270; J7120

== ENCOUNTER 2020-07-21 21:55 | Inpatient (IN) | payer MEDICARE ==
[~2020-07-21] VITALS: Ht 167.6 cm; Wt 77.3 kg
[~2020-07-21 21:55] MED LIST changes: -ASPI-515 PO; +ASPI-963 PO; +CYCL10TA2 PO; +OXYcodone/APAP 5/325MG PO
--- NOTE | 2020-07-21 22:05 | NUR ---
PT BIB [facility] FROM HOME FOR LUQ PAIN, N/V, SOB, HEADACHE X24 HOURS. PT WAS GIVEN ABOUT 200ML NS EN ROUTE. ARRIVES TO ED AOX4, CALM, REPORTS ONLY MINIMAL ABD PAIN AT THIS TIME. ER PA AT BS. [employer]CH[employer] DOING EKG AT BS.
--- NOTE | 2020-07-21 22:26 | NUR ---
PT TO US VIA [facility].
[2020-07-21] MEDS ORDERED: SODIUM CHLORIDE 0.9% 1,000ML IVBOLUS ONE (22:30)
[2020-07-21] MEDS ORDERED: ONDANSETRON 2MG/ML, 2ML IVPush ONE (22:30)
[2020-07-21] MEDS ORDERED: SODIUM CHLORIDE FLUSH 10ML SYR IVF ONE (22:30)
--- NOTE | 2020-07-21 22:39 | NUR ---
PT RETURNS FROM [place].
[2020-07-21 23:07] LABS: ALANINE AMINOTRANSFERASE 31 U/L (12-78); ANION GAP 8 mmol/L (5-15); CALCIUM 8.4 mg/dL (8.5-10.1); CHLORIDE 108 mmol/L (98-107); CREATININE 1.29 mg/dL (0.7-1.3)
[2020-07-21 23:12] LABS: ALKALINE PHOSPHATASE 74 U/L (45-117); BILIRUBIN,TOTAL 0.7 mg/dL (0.2-1.0); MEAN CORPUSCULAR HEMOGLOBIN 31.4 pg (27.5-34.5); MEAN CORPUSCULAR HGB CONC 33.8 g/dL (33.2-36.2); MEAN PLATELET VOLUME 9.1 fL (7.4-10.4); PLATELET COUNT 268 x10^3/uL (130-400); RED BLOOD COUNT 6.38 x10^6/uL (4.38-5.82); RED CELL DISTRIBUTION WIDTH 14.2 % (9.4-14.8); TOTAL PROTEIN 6.3 g/dL (6.4-8.2); TROPONIN I < 0.015 ng/mL (0.000-0.045)
[2020-07-21 23:19] LABS: MD YES
[2020-07-21 23:30] LABS: BAND#(MANUAL) 0.76 x10^3/uL; BANDS%(MANUAL) 2 % (0-7); LYMPH#(MANUAL) 0.38 x10^3/uL (1-3.4); LYMPHS% (MANUAL) 1 % (22-44); MONOS#(MANUAL) 2.65 x10^3/uL (0.3-2.7); MONOS% (MANUAL) 7 % (2-9); SEG#(MANUAL) 34.11 x10^3/uL (1.8-6.8); SEGS% (MANUAL) 90 % (42-75)
--- NOTE | 2020-07-21 23:30 | NUR ---
REPORT RECIEVED FROM UZAIR JUAREZ
[2020-07-21 23:31] LABS: <PLATELET ESTIMATE> ADEQUATE
[2020-07-21 23:32] LABS: LARGE PLATELETS 1+
[2020-07-21 23:33] LABS: <RBC MORPHOLOGY> NORMAL
[2020-07-21] MEDS ORDERED: OMNIPAQUE 350 MG/ML, 100ML BOTTLE ONE (23:33)
[2020-07-21] MEDS ORDERED: LORazepam 2 MG/ML, 1ML IV STA (23:46)
[2020-07-21] MEDS ORDERED: methylPREDNISolone SOD SUCC 125 MG/2 ML ONE (23:47)
[2020-07-21] MEDS ORDERED: LORazepam 2 MG/ML, 1ML ONE (23:47)
[2020-07-21] MEDS ORDERED: DIPHENHYDRAMINE 50 MG/ML, 1ML ONE (23:47)
[2020-07-21] MEDS ORDERED: methylPREDNISolone SOD SUCC 125 MG/2 ML IVPush STA (23:47)
[2020-07-22] MEDS ORDERED: CEFTRIAXONE PMX 1GM/50ML 50 ML IV ONE
[2020-07-22] MEDS ORDERED: DIPHENHYDRAMINE 50 MG/ML, 1ML IV ONE
--- NOTE | 2020-07-22 00:03 | NUR ---
PT REPORTED TO THIS RN THAT CONTRAST IODINE WILL CLOSE UP HIS THROAT. ERP UPDATED AND STATED TO MEDICATE PRIOR TO SCAN. MD SPOKE WITH PATIENT AND PT MEDICATED PRIOR TO SCAN. PT UNDERSTANDING AND AGREEABLE TO POC. NEW PIV PLACED, 2 SETS OF BLOOD CULTURES DRAWN. PT ON THE WAY TO CT RIGHT NOW
[2020-07-22] MEDS ORDERED: CEFTRIAXONE PMX 1GM/50ML 50 ML ONE (00:23)
[2020-07-22] MEDS ORDERED: SODIUM CHLORIDE 0.9% 1,000ML IVBOLUS ONE (00:30)
--- NOTE | 2020-07-22 00:30 | NUR ---
abx hung after blood cultures
[2020-07-22] MEDS ORDERED: NITR25CA3 PO (00:57)
--- NOTE | 2020-07-22 00:59 | NUR ---
(georgiana): [phone] (ok to give information to)
--- NOTE | 2020-07-22 00:59 | NUR ---
pt resting in gurney comfortably, pt drowsy and dozing intermittently. monitors in place. 1st bolus still running and abx running as well.
[2020-07-22 01:07] LABS: MICROSCOPIC NOT IND
[2020-07-22] MEDS ORDERED: NITR50CA11 PO (01:19)
[2020-07-22 02:01] VITALS: BP 105/74
[2020-07-22] MEDS ORDERED: ACETAMINOPHEN 325 MG TABLET PO PRN (04:00)
[2020-07-22] MEDS ORDERED: ENALAPRILAT 1.25 MG/ML, 2ML IVPush PRN (04:00)
[2020-07-22] MEDS: ENOXAPARIN 40 MG/0.4 ML SQ SCH (04:32)
[2020-07-22] MEDS: ASPIRIN 325 MG TABLET EC PO SCH (06:11)
[2020-07-22 06:26] LABS: CHLORIDE 112 mmol/L (98-107)
[2020-07-22 06:33] LABS: ANION GAP 9 mmol/L (5-15); BASOPHILS % (AUTO) 0 % (0-1); CALCIUM 7.6 mg/dL (8.5-10.1); CHOL/HDL RATIO 4.8; CHOLESTEROL, TOTAL 144 mg/dL (140-239); EOSINOPHILS % (AUTO) 0 % (1-7); HDL CHOL % 21 % (26-37); HDL CHOLESTEROL (DIRECT) 30 mg/dL (40-60); LDL CHOLESTEROL,CALCULATED 95 mg/dL (54-169); LDL/HDL RATIO 3.2 (0.5-3.0); LYMPHOCYTES % (AUTO) 3 % (22-44); MEAN CORPUSCULAR HEMOGLOBIN 31.4 pg (27.5-34.5); MEAN CORPUSCULAR HGB CONC 33.5 g/dL (33.2-36.2); MEAN PLATELET VOLUME 8.8 fL (7.4-10.4); MONOCYTES % (AUTO) 2 % (2-9); NEUTROPHILS % (AUTO) 96 % (42-75); PLATELET COUNT 234 x10^3/uL (130-400); RED BLOOD COUNT 5.67 x10^6/uL (4.38-5.82); RED CELL DISTRIBUTION WIDTH 14.2 % (9.4-14.8); TRIGLYCERIDES 93 mg/dL (50-200); TROPONIN I < 0.015 ng/mL (0.000-0.045); VLDL CHOLESTEROL 19 mg/dL (0-25)
[2020-07-22 06:50] VITALS: BP 89/60
[2020-07-22 07:10] LABS: MD SCAN
[2020-07-22] MEDS ORDERED: POTASSIUM PHOSPHATE 44 MEQ in SODIUM CHLORIDE 0.9% 500 ML IV ONE (09:00)
[2020-07-22] MEDS ORDERED: ALBUMIN HUMAN 25% 100 ML IV ONE (09:00)
[2020-07-22 09:22] VITALS: BP 148/89
[2020-07-22] MEDS: SODIUM CHLORIDE 0.9% 1,000 ML IV SCH ×2 (09:28→19:00)
[2020-07-22 10:00] LABS: HCT (SEDRATE) 53.1 % (39.2-51.8)
[2020-07-22 12:32] VITALS: BP 138/82
[2020-07-22] MEDS ORDERED: GADOTERATE 10 MMOL/20ML SYR ONE (14:37)
[2020-07-22 20:00] VITALS: BP 132/73
[2020-07-23 00:07] VITALS: BP 127/74
[2020-07-23 05:25] LABS: RED BLOOD COUNT 5.13 x10^6/uL (4.38-5.82)
[2020-07-23 05:26] LABS: BASOPHILS % (AUTO) 0 % (0-1); EOSINOPHILS % (AUTO) 0 % (1-7); LYMPHOCYTES % (AUTO) 10 % (22-44); MEAN CORPUSCULAR HEMOGLOBIN 31.1 pg (27.5-34.5); MEAN CORPUSCULAR HGB CONC 32.9 g/dL (33.2-36.2); MEAN PLATELET VOLUME 8.4 fL (7.4-10.4); MONOCYTES % (AUTO) 7 % (2-9); NEUTROPHILS % (AUTO) 82 % (42-75); PLATELET COUNT 231 x10^3/uL (130-400); RED CELL DISTRIBUTION WIDTH 14.3 % (9.4-14.8)
[2020-07-23 05:38] LABS: CHLORIDE 113 mmol/L (98-107)
[2020-07-23 05:47] LABS: ALANINE AMINOTRANSFERASE 21 U/L (12-78); ALBUMIN 2.7 g/dL (3.4-5.0); ALKALINE PHOSPHATASE 58 U/L (45-117); ANION GAP 7 mmol/L (5-15); BILIRUBIN,TOTAL 0.4 mg/dL (0.2-1.0); CALCIUM 8.3 mg/dL (8.5-10.1); CREATININE 0.88 mg/dL (0.7-1.3); TOTAL PROTEIN 5.2 g/dL (6.4-8.2)
[2020-07-23 05:54] LABS: MD SCAN
[2020-07-23] MEDS: ASPIRIN 325 MG TABLET EC PO SCH (06:25)
[2020-07-23 06:51] VITALS: BP 128/73
[2020-07-23] MEDS: SODIUM CHLORIDE 0.9% 1,000 ML IV SCH (08:35)
[2020-07-23] MEDS: ENOXAPARIN 40 MG/0.4 ML SQ SCH (08:35)
[2020-07-23 12:52] VITALS: BP 136/76
== END 2020-07-23 16:30 | disposition home or self-care (01) | DRG 641 ==
LOC: ED 22:59 → OBSVTOIN 07-22 01:06 → INTOOBSV 07-22 01:06 → EDIP 07-22 01:06 → 5SO 07-22 01:58 → DCLOUNGE 07-23 16:19
PROVIDERS: ADMIT Family Medicine; ATTEND Family Medicine
DX: E86.0 Dehydration (principal); R65.10 Systemic inflammatory response syndrome (SIRS) of non-infectious origin without acute organ dysfunction; I25.10 Atherosclerotic heart disease of native coronary artery without angina pectoris; E11.65 Type 2 diabetes mellitus with hyperglycemia; E78.5 Hyperlipidemia, unspecified; I25.2 Old myocardial infarction; G89.29 Other chronic pain; M19.90 Unspecified osteoarthritis, unspecified site; I11.9 Hypertensive heart disease without heart failure; E11.40 Type 2 diabetes mellitus with diabetic neuropathy, unspecified; M54.9 Dorsalgia, unspecified; K76.0 Fatty (change of) liver, not elsewhere classified; D75.1 Secondary polycythemia; E11.42 Type 2 diabetes mellitus with diabetic polyneuropathy; E11.51 Type 2 diabetes mellitus with diabetic peripheral angiopathy without gangrene; Z80.51 Family history of malignant neoplasm of kidney; Z95.1 Presence of aortocoronary bypass graft; Z95.5 Presence of coronary angioplasty implant and graft; Z90.49 Acquired absence of other specified parts of digestive tract; Z87.442 Personal history of urinary calculi; Z79.899 Other long term (current) drug therapy; Z87.891 Personal history of nicotine dependence; Z91.041 Radiographic dye allergy status; Z88.6 Allergy status to analgesic agent; Z88.8 Allergy status to other drugs, medicaments and biological substances; Z82.61 Family history of arthritis; Z81.8 Family history of other mental and behavioral disorders; Z82.49 Family history of ischemic heart disease and other diseases of the circulatory system; Z83.3 Family history of diabetes mellitus; R10.9 Unspecified abdominal pain
CPT/HCPCS: 36415; 71045; 71275; 72157; 72158; 74174; 76700; 78452; 80048; 80053; 80061; 81003; 82728; 83036; 83540; 83550; 83605; 83690; 83735; 84100; 84145; 84466; 84484; 85025; 85379; 85651; 86140; 87040; 93005; 93017; 93306; 99285; G0378; J0696; J1650; P9047; Q9967; A9502; A9575; J1200; J2060; J2930; J7030; J7040

== ENCOUNTER 2020-11-22 15:33 | Outpatient (CLI) | payer MEDICARE ==
[~2020-11-22 15:33] MED LIST changes: +NITR25CA3 PO; +NITR50CA11 PO; -VANC1VIA3 PO; +VANC1VIA36 PO
[2020-11-22 16:45] LABS: BASOPHILS % (AUTO) 0 % (0-1); EOSINOPHILS % (AUTO) 1 % (1-7); LYMPHOCYTES % (AUTO) 11 % (22-44); MEAN CORPUSCULAR HEMOGLOBIN 30.6 pg (27.5-34.5); MEAN CORPUSCULAR HGB CONC 33.4 g/dL (33.2-36.2); MEAN PLATELET VOLUME 8.1 fL (7.4-10.4); MONOCYTES % (AUTO) 9 % (2-9); NEUTROPHILS % (AUTO) 79 % (42-75); PLATELET COUNT 188 x10^3/uL (130-400); RED BLOOD COUNT 6.12 x10^6/uL (4.38-5.82); RED CELL DISTRIBUTION WIDTH 18.4 % (9.4-14.8)
[2020-11-22 16:47] LABS: ANION GAP 7 mmol/L (5-15); CALCIUM 9.8 mg/dL (8.5-10.1); CHLORIDE 112 mmol/L (98-107); CREATININE 1.13 mg/dL (0.7-1.3)
[2020-11-22 16:50] LABS: INTERNATIONAL NORMALIZED RATIO 1.04 (0.93-1.1); MICROSCOPIC NOT IND; PROTHROMBIN TIME 11.1 Seconds (9.6-11.5)
== END 2020-11-22 23:59 | disposition home or self-care (01) ==
LOC: LAB 15:33 → RAD 23:59
PROVIDERS: ATTEND Family Medicine
DX: Z01.818 Encounter for other preprocedural examination (principal); M79.606 Pain in leg, unspecified
CPT/HCPCS: 36415; 71046; 80048; 81003; 85025; 85610; 85730; 93005